=== PATIENT | male | born 1955 | race Caucasian/White ===

== ENCOUNTER 2016-05-28 10:18 | Emergency (ER) | payer SELFPAY ==
[2016-05-28 10:55] VITALS: BP 137/75
[2016-05-28] MEDS ORDERED: Ibuprofen TAB* 600 MG PO ONE (11:28)
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
--- NOTE | 2016-05-28 11:49 | RAD ---
Indication: Left knee injury. 4 views of the report left knee demonstrates no fracture. Joint spaces all well-preserved. There is some superficial infrapatellar swelling noted. Exostosis is present arising from the dorsal femur distally. This likely represents a benign osteochondroma. IMPRESSION: No fracture of the knee is noted. Soft tissue swelling superficial to the infrapatellar tendon is noted.
== END 2016-05-28 12:14 | disposition home or self-care (01) ==
LOC: UCCORT 10:18
DX: S83.412A Sprain of medial collateral ligament of left knee, initial encounter (principal); W00.0XXA Fall on same level due to ice and snow, initial encounter; Y93.9 Activity, unspecified; Y92.9 Unspecified place or not applicable; Y99.0 Civilian activity done for income or pay; M25.462 Effusion, left knee; I10 Essential (primary) hypertension; J44.9 Chronic obstructive pulmonary disease, unspecified; Z87.891 Personal history of nicotine dependence
CPT/HCPCS: 99214; A9270-GY; G0463

== ENCOUNTER 2017-10-24 06:59 | Emergency (ER) | payer BC ==
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
[2017-10-24] MEDS ORDERED: Dexamethasone IV* 4 MG/ML 1 ML (4 MG) IM ONE (08:26)
[2017-10-24] MEDS ORDERED: Ketorolac INJ* 60 MG/2 ML VIAL IM ONE (08:26)
[2017-10-24] MEDS ORDERED: Orphenadrine Citrate IV* 30 MG/ML 2 ML VIAL IM ONE (08:26)
[2017-10-24] MEDS ORDERED: HYDROcodone/ACETAMIN 5-325 MG* 1 TAB PO ONE (08:28)
--- NOTE | 2017-10-24 09:20 | RAD ---
INDICATION: Low back pain. COMPARISON: Comparison is made with a prior CT of the abdomen and pelvis from November 13, 2014. TECHNIQUE: 5 views of the lumbar spine were obtained including lateral, oblique, AP and a coned-down lateral view of the lumbar sacral junction. FINDINGS: The vertebra are in normal alignment. No fracture is seen. There is mild degenerative disc disease at the L2-L3, L3-L4 and L4-L5 levels and moderate to severe degenerative disc disease at the L5-S1 level. There appears be an aneurysm of the distal abdominal aorta measuring 3.6 cm on the film. IMPRESSION: 1. MODERATE TO SEVERE DEGENERATIVE DISC DISEASE AT THE L5-S1 LEVEL. 2. ANEURYSM OF THE DISTAL ABDOMINAL AORTA NOTED.
[2017-10-24 11:23] VITALS: BP 148/82
== END 2017-10-24 11:21 | disposition home or self-care (01) ==
LOC: ED 06:59
DX: M54.40 Lumbago with sciatica, unspecified side (principal); M51.9 Unspecified thoracic, thoracolumbar and lumbosacral intervertebral disc disorder; I71.4 Abdominal aortic aneurysm, without rupture; Z87.891 Personal history of nicotine dependence
CPT/HCPCS: 72110; 96372; 99282; J1100; J1885; J2360

== ENCOUNTER 2017-11-17 09:31 | Emergency (ER) | payer BC ==
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
[2017-11-17] MEDS ORDERED: ValACYclovir (*) 1 GM TAB PO ONE (10:35)
[2017-11-17] MEDS ORDERED: Acetaminophen TAB* 325 MG PO ONE (10:40)
[2017-11-17 11:38] LABS: ABS Basophils 0.1 10^3/ul (0-0.2); ABS Eosinophils 0.1 10^3/ul (0-0.6); ABS Lymphocytes 0.9 10^3/ul (1.0-4.8); ABS Monocytes 0.3 10^3/ul (0-0.8); ABS Neutrophils 3.8 10^3/ul (1.5-7.7); ABS Nucleated RBC 0 10^3/ul; Eosinophil % 1.6 % (0-6); Hematocrit 39 % (42-52); Hemoglobin 13.6 g/dl (14.0-18.0); Lymphocyte % 17.2 % (25-47); Mean Corpuscular HGB Conc 35 g/dl (31-36); Mean Corpuscular Hemoglobin 38 pg (27-31); Mean Corpuscular Volume 110 fL (80-94); Mean Platelet Volume 7.2 um3 (7.4-10.4); Nucleated Red Blood Cells % 0.1; Platelet Count 260 10^3/ul (150-450); Red Blood Count 3.55 10^6/ul (4.00-5.40); Red Cell Distribution Width 15 % (10.5-15); White Blood Count 5.1 10^3/ul (3.5-10.8)
[2017-11-17 11:47] LABS: INR 1.08 (0.77-1.02)
[2017-11-17 11:50] VITALS: BP 155/93
[2017-11-17 11:56] LABS: EGFR Non-African American 92.9 (>60)
[2017-11-17 12:26] LABS: Urine Appearance Clear; Urine Blood 1+ (Negative); Urine Color Yellow; Urine Ketones Negative (Negative); Urine Protein Negative (Negative); Urine Red Blood Cell 1+(3-5/hpf) (Absent); Urine Specific Gravity 1.019 (1.010-1.030); Urine Urobilinogen Negative (Negative); Urine White Blood Cell Trace(0-5/hpf) (Absent)
== END 2017-11-17 12:28 | disposition home or self-care (01) ==
LOC: ED 09:31
DX: B02.8 Zoster with other complications (principal); B02.39 Other herpes zoster eye disease; I10 Essential (primary) hypertension; I71.4 Abdominal aortic aneurysm, without rupture; D47.3 Essential (hemorrhagic) thrombocythemia; Z87.891 Personal history of nicotine dependence; Z79.899 Other long term (current) drug therapy; Z79.82 Long term (current) use of aspirin; Z82.3 Family history of stroke; Z82.49 Family history of ischemic heart disease and other diseases of the circulatory system
CPT/HCPCS: 36415; 80053; 81003; 81015; 83735; 85025; 85610; 86140; 87086; 99282; A9270-GY

== ENCOUNTER 2019-04-05 09:09 | Emergency (ER) | payer BC, OTHER ==
--- OUTSIDE RECORDS SUMMARY | 2019-04-05 09:38 | XMS REPORT | Summary of Care ---
:1955 Author Organization [facility] Address [address] [place] [address] Care Team Providers Name Role Phone Lico Araiza MD Primary Care Provider Reason for Visit Reason Comments Fall Loss of Consciousness Encounter Details Date Type Department Care Team Description 04/03/2019 Emergency EMERGENCY DEPARTMENT [facility] Sukhdev Cedillo MD Fall, initial encounter [address] [facility] (Primary Dx) [place] [address] [place] [address] [phone] Allergies No Known Allergiesdocumented as of this encounter (statuses as of 04/03/2019) Medications Medication Sig Dispensed Refills Start Date End Date Status Valsartan-hydroCHLOROthia TAKE ONE TABLET 0 01/17/2019 Active zide 160-25 MG Oral BY MOUTH EVERY Tablet (DIOVAN-HCT) DAY Tamsulosin HCl 0.4 MG TAKE TWO 0 01/17/2019 Active Oral Capsule (FLOMAX) CAPSULES BY MOUTH AT BEDTIME Spironolactone 25 MG Oral TAKE ONE TABLET 0 01/17/2019 Active Tablet (ALDACTONE) BY MOUTH EVERY DAY oxyCODONE HCl 10 MG Oral Take 10 mg by 0 04/01/2019 Active Tablet mouth Potassium Chloride Lola TAKE ONE TABLET 0 07/02/2017 Active ER 20 MEQ Oral Tablet BY MOUTH EVERY Extended Release DAY (K-DUR,KLOR-CON) Hydroxyurea 500 MG Oral TAKE THREE 0 12/16/2017 Active Capsule (HYDREA) CAPSULES BY MOUTH DAILY Aspirin 81 MG Oral Tablet Take 81 mg by 0 Active mouth Hydroxychloroquine 0 01/10/2019 Active Sulfate 200 MG Oral Tablet (PLAQUENIL) documented as of this encounter (statuses as of 04/03/2019) Active Problems Not on filedocumented as of this encounter (statuses as of 04/03/2019) Social History Tobacco Use Types Packs/Day Years Used Date Former Smoker Alcohol Use Drinks/Week oz/Week Comments Yes 3-5 beers daily Sex Assigned at Date Recorded Not on file Job Start Date Occupation Industry Not on file Not on file Not on file Travel History Travel Start Travel End No recent travel history available. documented as of this encounter Last Filed Vital Signs Vital Sign Reading Time Taken Comments Blood Pressure 166/92 04/03/2019 1:30 PM EST Pulse 85 04/03/2019 1:30 PM EST Temperature 36.8 04/03/2019 1:30 PM EST C (98.2 F) Respiratory Rate 18 04/03/2019 1:30 PM EST Oxygen Saturation 94% 04/03/2019 1:30 PM EST Inhaled Oxygen Concentration - - Weight 133.8 kg (295 lb) 04/03/2019 8:13 AM EST Height 182.9 cm (6') 04/03/2019 8:13 AM EST Body Mass Index 40.01 04/03/2019 8:13 AM EST documented in this encounter Discharge Instructions AttachmentsThe following attachments cannot be sent through Care Everywhere.Fall with Uncertain Cause (Albanian)documented in this encounter Plan of Treatment Not on filedocumented as of this encounter Procedures Procedure Name Priority Date/Time Associated Diagnosis Comments XR SHOULDER STAT 04/03/2019 12:48 PM Results for this COMPLETE 60487 EST procedure are in the results section. CT CERVICAL SPINE STAT 04/03/2019 9:10 AM Results [place] [address] HEAD WITHOUT STAT 04/03/2019 9:10 AM Results for this CONTRAST [id number] EST procedure are in the results section. XR SPINE LUMBAR 2-3 STAT 04/03/2019 9:03 AM Results for this VIEWS [id number] EST procedure are in the results section. XR PELVIS 1-2 VIEWS STAT 04/03/2019 9:03 AM Results for this [id number] EST procedure are in the results section. XR HUMERUS AP STAT 04/03/2019 9:03 AM Results for this LATERAL [id number] EST procedure are in the results section. documented in this encounter Results XR Shoulder Complete Right (04/03/2019 12:48 PM EST) Specimen Impressions Performed At FINDINGS/IMPRESSION: No acute fracture or dislocation is seen. [facility] Previously described bony density is noted associated with the greater tuberosity of the humerus appears well corticated. This may represent calcification at the insertion of the supraspinatus tendon, or old trauma. Acromioclavicular joint does not appear widened but demonstrates degenerative changes. No soft tissue swelling is appreciated. If pain persists, a followup examination in 7 to 10 days is recommended to evaluate for occult fracture. Narrative Performed At Shoulder complete. [facility] INDICATION: Fall, arm pain. TECHNIQUE: AP, oblique and scapular views of the right shoulder were obtained. COMPARISON: Humerus radiograph done earlier the same day. Procedure Note Interface, Received Via [facility] [facility] - 04/03/2019 1:06 PM EST Shoulder complete. INDICATION: Fall, arm pain. TECHNIQUE: AP, oblique and scapular views of the right shoulder were obtained. COMPARISON: Humerus radiograph done earlier the same day. FINDINGS/IMPRESSION: No acute fracture or dislocation is seen. Previously described bony density is noted associated with the greater tuberosity of the humerus appears well corticated. This may represent calcification at the insertion of the supraspinatus tendon, or old trauma. Acromioclavicular joint does not appear widened but demonstrates degenerative changes. No soft tissue swelling is appreciated. If pain persists, a followup examination in 7 to 10 days is recommended to evaluate for occult fracture. Performing Organization Address City/State/Zipcode Phone Number [facility] [address] [place] [address] CT Cervical Spine without Contrast (04/03/2019 9:10 AM EST) Specimen Impressions Performed At IMPRESSION: [facility] No acute fracture or traumatic listhesis. Narrative Performed At INDICATION: 63-year-old male fell with positive loss of consciousness. [facility] TECHNIQUE: Axial images of the cervical spine were obtained by multidetector row CT without administration of intravenous contrast. Coronal and sagittal reformatted images were then obtained using the axial source data. Automated dose lowering techniques and/or adjustment according to patient size were utilized for this exam. COMPARISON: None. FINDINGS: No acute fracture or traumatic listhesis. Vertebral body heights are normal. There is moderate loss of intervertebral disc height at C5/6 and C6/7. No significant spondylolisthesis. There are multilevel degenerative changes including anterior osteophytosis and facet arthrosis which are worst at C5/6 and C6/7. There are emphysematous changes and scarring within the visualized lung apices. The visualized paraspinal soft tissues are otherwise unremarkable. Procedure Note Interface, Received Via [facility] - 04/03/2019 2:02 PM EST INDICATION: 63-year-old male fell with positive loss of consciousness. TECHNIQUE: Axial images of the cervical spine were obtained by multidetector row CT without administration of intravenous contrast. Coronal and sagittal reformatted images were then obtained using the axial source data. Automated dose lowering techniques and/or adjustment according to patient size were utilized for this exam. COMPARISON: None. FINDINGS: No acute fracture or traumatic listhesis. Vertebral body heights are normal. There is moderate loss of intervertebral disc height at C5/6 and C6/7. No significant spondylolisthesis. There are multilevel degenerative changes including anterior osteophytosis and facet arthrosis which are worst at C5/6 and C6/7. There are emphysematous changes and scarring within the visualized lung apices. The visualized paraspinal soft tissues are otherwise unremarkable. IMPRESSION: No acute fracture or traumatic listhesis. Performing Organization Address City/State/Zipcode Phone Number [facility] [address] [place] [address] CT Head without Contrast (04/03/2019 9:10 AM EST) Specimen Impressions Performed At IMPRESSION: [facility] No acute intracranial pathology. Narrative Performed At INDICATION: 63-year-old male fell and struck head with positive loss of [facility] consciousness. TECHNIQUE: Contiguous axial CT images of the head from the base of the skull to the vertex without IV contrast. Automated dose lowering techniques and/or adjustment according to patient size were utilized for this exam. COMPARISON: None. FINDINGS: There is no evidence of intracranial hemorrhage or acute territorial infarction. No edema or mass effect. Ventricles, cisterns, and sulci are normal. No extra-axial collections. Paranasal sinuses are clear. Mastoid air cells are clear bilaterally. No depressed calvarial fracture. No evidence of scalp swelling. Surgical mesh is present along the floor of the right orbit. Procedure Note Interface, Received Via [facility] [facility] - 04/03/2019 2:10 PM EST INDICATION: 63-year-old male fell and struck head with positive loss of consciousness. TECHNIQUE: Contiguous axial CT images of the head from the base of the skull to the vertex without IV contrast. Automated dose lowering techniques and/or adjustment according to patient size were utilized for this exam. COMPARISON: None. FINDINGS: There is no evidence of intracranial hemorrhage or acute territorial infarction. No edema or mass effect. Ventricles, cisterns, and sulci are normal. No extra-axial collections. Paranasal sinuses are clear. Mastoid air cells are clear bilaterally. No depressed calvarial fracture. No evidence of scalp swelling. Surgical mesh is present along the floor of the right orbit. IMPRESSION: No acute intracranial pathology. Performing Organization Address [facility] Phone Number [facility] [address] [place] [address] XR Humerus AP Lateral Right (04/03/2019 9:03 AM EST) Specimen Impressions Performed At FINDINGS/IMPRESSION: [facility] A round bony density is identified superimposed over the greater tuberosity. This could represent a soft tissue calcification, however a bony fracture fragment cannot be excluded. No donor site is appreciated. Correlate for tenderness in this region. Dedicated shoulder radiograph is suggested. There is no other evidence for fracture, subluxation or dislocation. There is normal anatomic alignment of the bones. Mild degenerative changes are noted in the acromioclavicular joint and the elbow. There is normal bone mineralization. There are no radiopaque foreign bodies. Narrative Performed At INDICATION: Arm pain, status post fall. [facility] TECHNIQUE: AP and lateral views of the right humerus were obtained. COMPARISON: None available at the time of this dictation. Procedure Note Interface, Received Via [facility] [facility] - 04/03/2019 9:52 AM EST INDICATION: Arm pain, status post fall. TECHNIQUE: AP and lateral views of the right humerus were obtained. COMPARISON: None available at the time of this dictation. FINDINGS/IMPRESSION: A round bony density is identified superimposed over the greater tuberosity. This could represent a soft tissue calcification, however a bony fracture fragment cannot be excluded. No donor site is appreciated. Correlate for tenderness in this region. Dedicated shoulder radiograph is suggested. There is no other evidence for fracture, subluxation or dislocation. There is normal anatomic alignment of the bones. Mild degenerative changes are noted in the acromioclavicular joint and the elbow. There is normal bone mineralization. There are no radiopaque foreign bodies. Performing Organization Address [facility]/Zipcode Phone Number [facility] [address] [place] [address] XR Pelvis 1-2 Views (04/03/2019 9:03 AM EST) Specimen Impressions Performed At IMPRESSION: [facility] No evidence of acute fracture or subluxation. Narrative Performed At INDICATION: Fall, back pain. [facility] TECHNIQUE: AP and crosstable lateral views of the lumbar spine and 2 AP views of the pelvis were obtained. COMPARISON: None available at the time of this dictation. FINDINGS: Lumbar spine: For counting purposes, the lowest complete intervertebral disc space is designated L5-S1. No fractures or subluxations are identified. Vertebral body heights are well maintained. There is mild to moderate joint space narrowing at L5-S1. Alignment appears unremarkable. There are vascular calcifications. Visualized abdomen: There is a moderate stool burden. There are nondilated loops of bowel. Pelvis: There is no evidence of acute fracture or dislocation. The bones are anatomically aligned. There is mild degenerative changes at the SI joints and hip joints. No significant soft tissue abnormality is seen. Procedure Note Interface, Received Via [facility] - 04/03/2019 9:49 AM EST INDICATION: Fall, back pain. TECHNIQUE: AP and crosstable lateral views of the lumbar spine and 2 AP views of the pelvis were obtained. COMPARISON: None available at the time of this dictation. FINDINGS: Lumbar spine: For counting purposes, the lowest complete intervertebral disc space is designated L5-S1. No fractures or subluxations are identified. Vertebral body heights are well maintained. There is mild to moderate joint space narrowing at L5-S1. Alignment appears unremarkable. There are vascular calcifications. Visualized abdomen: There is a moderate stool burden. There are nondilated loops of bowel. Pelvis: There is no evidence of acute fracture or dislocation. The bones are anatomically aligned. There is mild degenerative changes at the SI joints and hip joints. No significant soft tissue abnormality is seen. IMPRESSION: No evidence of acute fracture or subluxation. Performing Organization Address City/State/Zipcode Phone Number [facility] [address] [place] [address] XR Spine Lumbar 2-3 Views (04/03/2019 9:03 AM EST) Specimen Impressions Performed At IMPRESSION: [facility] No evidence of acute fracture or subluxation. Narrative Performed At INDICATION: Fall, back pain. [facility] TECHNIQUE: AP and crosstable lateral views of the lumbar spine and 2 AP views of the pelvis were obtained. COMPARISON: None available at the time of this dictation. FINDINGS: Lumbar spine: For counting purposes, the lowest complete intervertebral disc space is designated L5-S1. No fractures or subluxations are identified. Vertebral body heights are well maintained. There is mild to moderate joint space narrowing at L5-S1. Alignment appears unremarkable. There are vascular calcifications. Visualized abdomen: There is a moderate stool burden. There are nondilated loops of bowel. Pelvis: There is no evidence of acute fracture or dislocation. The bones are anatomically aligned. There is mild degenerative changes at the SI joints and hip joints. No significant soft tissue abnormality is seen. Procedure Note Interface, Received Via [employer] [facility] - 04/03/2019 9:49 AM EST INDICATION: Fall, back pain. TECHNIQUE: AP and crosstable lateral views of the lumbar spine and 2 AP views of the pelvis were obtained. COMPARISON: None available at the time of this dictation. FINDINGS: Lumbar spine: For counting purposes, the lowest complete intervertebral disc space is designated L5-S1. No fractures or subluxations are identified. Vertebral body heights are well maintained. There is mild to moderate joint space narrowing at L5-S1. Alignment appears unremarkable. There are vascular calcifications. Visualized abdomen: There is a moderate stool burden. There are nondilated loops of bowel. Pelvis: There is no evidence of acute fracture or dislocation. The bones are anatomically aligned. There is mild degenerative changes at the SI joints and hip joints. No significant soft tissue abnormality is seen. IMPRESSION: No evidence of acute fracture or subluxation. Performing Organization Address City/State/Zipcode Phone Number [facility] [address] [place] [address] documented in this encounter Visit Diagnoses Diagnosis Fall, initial encounter - Primary documented in this encounter Administered Medications Medication Order MAR Action Action Date Dose Rate Site acetaminophen (TYLENOL) tablet Given 04/03/2019 11:02 AM EST 650 mg 650 mg 650 mg, Oral, Once, 04/03/19 at 1100, For 1 dose, Maximum daily dose of acetaminophen is 3,000 mg from all sources in 24 hours., documented in this encounter
--- OUTSIDE RECORDS SUMMARY | 2019-04-05 09:38 | XMS REPORT | Continuity of Care Document ---
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- Onset: 09/2013 Social History Type Date Description Comments Sex Unknown Tobacco Use Start: Unknown End: Former Cigarette Smoker 2 Unknown Packs Daily Smoking Status Reviewed: 02/21/19 Former Cigarette Smoker 2 Packs Daily ETOH Use Occasionally consumes alcohol Tobacco Use Start: Unknown End: Patient is a former smoker Unknown Recreational Drug Use Denies Drug Use Allergies, Adverse Reactions, Alerts Description No Known Drug Allergies Medications Active Medications SIG Qnty Indications Ordering Date Provider Hydroxychloroquine take one tab by 180tabs M06.00 Kurt 01/10/2019 Sulfate mouth daily for MD Juan Manuel 200mg Tablets one week, then increase to one tab twice daily thereafter Prednisone Take three tabs 45tabs M06.4 Kurt 12/22/2018 5mg Tablets by mouth daily MD Juan Manuel for one week, two tabs by mouth daily for one week, one tab by mouth daily for one week [place] Aspirin Ec Low Dose 1 by mouth every Unknown 03/05/[address] Cookrtbarry 1 by mouth every Unknown 03/05/2015 160mg Tablets day Diovan HCT 1 by mouth every 30tabs Unknown 80-12.5mg Tablets day Tamsulosin HCL 1 by mouth every 90caps Unknown 0.4mg Capsules day Klor-Con 10 1 by mouth every 30tabs Unknown 10Meq Tablets ER day Hydroxyurea Take Three Unknown 500mg Capsules Capsules By Mouth Every Day Spironolactone Lico Araiza, 25mg Tablets Oxycodone HCL Lico Araiza, 10mg Tablets Medications Administered in Office Medication SIG Qnty Indications Ordering Provider Date Triamcinolone (Kenalog) Kurt Zambrano MD 02/21/2019 Injection Immunizations Description No Information Available Vital Signs Date Vital Result Comment 02/21/2019 12:51pm Height 72 inches 6'0" Weight 290.00 lb Heart Rate 88 /min BP Systolic 114 mmHg BP Diastolic 73 mmHg Body Temperature 98.3 F Pain Level 9 O2 % BldC Oximetry 95 % BMI (Body Mass Index) 39.3 kg/m2 01/10/2019 1:24pm Height 72 inches 6'0" Weight 285.12 lb Heart Rate 70 /min BP Systolic 124 mmHg BP Diastolic 77 mmHg Body Temperature 97.7 F Pain Level 6 O2 % BldC Oximetry 95 % BMI (Body Mass Index) 38.7 kg/m2 Results Test Acquired Date Facility Test Result H/L Range Note Laboratory test 02/21/2019 [facility] Body Fluid <pending> finding [address] [address] [phone] Body Fluid Culture Bottles <pending> Corina Igg AB Reflex 01/10/2019 [facility] SS-A/Ro Antibody <0.2 U 1 [address] [place] [address] [phone] SS-B/La Antibody <0.2 U 2 Sm (Pablo) IgG Antibody <0.2 U 3 [employer] MANAGER Antibody, IgG <0.2 U 4 Scl-70 (Scleroderma) Antibody <0.2 U 5 Peace-1 Antibody <0.2 U 6 Vitamin B12 01/10/2019 [facility] Vitamin B12 237 pg/mL Normal 180-914 [address] [place] [address] [phone] Folic Acid (Folate) 16.92 ng/mL >3.99 CBC No Diff 12/22/2018 [facility] White Blood 7.8 10^3/uL Normal 3.5-10.8 [address] [place] [address] [phone] Red Blood Count 4.32 10^6/uL Normal 4.18-5.48 Hemoglobin 16.0 g/dL Normal 14.0-18.0 Hematocrit 47 % Normal 42-52 Mean Corpuscular Volume 109 fL High 80-94 8 Mean Corpuscular Hemoglobin 37 pg High 27-31 Mean Corpuscular HGB Conc 34 g/dL Normal 31-36 Red Cell Distribution Width 17 % High 10-15 Platelet Count 290 10^3/uL Normal 150-450 Mean Platelet Volume 8.0 fL Normal 7.4-10.4 Laboratory test 12/22/2018 [facility] C Reactive 7.07 mg/L Normal <8.01 finding [facility] [place] [address] [phone] Erythrocyte Sed Rate 3 mm/Hr Normal 0-19 Rheumatoid Factor 12 IU/mL Normal <15 Cyclic Citrullinated Pep Igg <15.6 U 9 Hla B27 12/22/2018 [facility] Hla B27 Negative [address] [place] [address] [phone] Hla B27 Interp See Comment 11 Nuclear AB 12/22/2018 [facility] Nuclear Ab Positive 1:160 Abnormal 12 (Idania) By Ifa [facility] (Idania) by Ifa, [place] [address] IgG [phone] Idania Titer: 1:160 Idania Pattern: Speckled 13 Comp Metabolic 12/22/2018 [facility] Sodium 139 mmol/L Normal 135-145 [place] [address] [phone] Potassium 4.0 mmol/L Normal 3.5-5.0 Chloride 102 mmol/L Normal 101-111 Co2 Carbon Dioxide 29 mmol/L Normal 22-32 Anion Gap 8 mmol/L Normal 2-11 Glucose 91 mg/dL Normal 70-100 Blood Urea Nitrogen 22 mg/dL Normal 6-24 Creatinine 0.89 mg/dL Normal 0.67-1.17 BUN/Creatinine Ratio 24.7 High 8-20 Calcium 9.5 mg/dL Normal 8.6-10.3 Total Protein 6.7 g/dL Normal 6.4-8.9 Albumin 4.4 g/dL Normal 3.2-5.2 Globulin 2.3 g/dL Normal 2-4 Albumin/Globulin Ratio 1.9 Normal 1-3 Total Bilirubin 0.70 mg/dL Normal 0.2-1.0 Alkaline Phosphatase 24 U/L Low 34-104 Alt 14 U/L Normal 7-52 Ast 12 U/L Low 13-39 Egfr Non- 86.3 >60 Egfr 104.5 >60 14 Laboratory test 12/22/2018 [facility] Ferritin 119.9 ng/mL Normal 24-[address] [place] [address] [phone] Iron & Iron 12/22/2018 [facility] Iron 69 g/dL Normal 50- 212 Binding Capacity [address] [place] [address] [phone] Unsaturated Iron Binding < 376 g/dL Total Iron Binding Capacity 391 g/dL Normal 250-450 Transferrin 279 mg/dL Normal 203-362 % Iron Saturation 18 % Normal 15-55 1 REFERENCE VALUE <1.0 (Negative) 2 REFERENCE VALUE <1.0 (Negative) 3 REFERENCE VALUE <1.0 (Negative) 4 REFERENCE VALUE <1.0 (Negative) 5 REFERENCE VALUE <1.0 (Negative) 6 REFERENCE VALUE <1.0 (Negative) Test Performed by: [facility] [place] [address] Fruit Dryer: Giancarlo Okeefe M.D. Ph.D.; CLIA# [id number] 7 Normal Range 180 to 914 Indeterminate Range 145 to 180 Deficient Range <145 8 Consistent with Previous Results Reported on 11/17/2017 9 REFERENCE VALUE <20.0 (Negative) Test Performed by: [facility] [place] [address] Fruit Dryer: Giancarlo Okeefe M.D. Ph.D.; CLIA# [id number] 10 REFERENCE VALUE Not Applicable 11 RESULT: HLA-B27 antigen was not detected. ADDITIONAL INFORMATION Method: Flow Cytometry Test Performed by: [facility] - [address] [address] Fruit Dryer: Giancarlo Okeefe M.D. Ph.D.; CLIA# [id number] 12 REFERENCE VALUE <1:80 (Negative) 13 Test Performed by: [facility] [place] [address] Fruit Dryer: Giancarlo Okeefe M.D. Ph.D.; CLIA# [id number] 14 Because ethnic data is not always readily available, this report includes an eGFR for both -Americans and non- Americans. The National Kidney Disease Education Program (NKDEP) does not endorse the use of the MDRD equation for patients that are not between the ages of 18 and 70, are , have extremes of body size, muscle mass, or nutritional status, or are non- or non-. According to the National Kidney Foundation, irrespective of diagnosis, the stage of the disease is based on the level of kidney function: Stage Description GFR(mL/min/1.73 m(2)) 1 Kidney damage with normal or decreased GFR 90 2 Kidney damage with mild decrease in GFR 60-89 3 Moderate decrease in GFR 30-59 4 Severe decrease in GFR 15-29 5 Kidney failure <15 (or dialysis) Procedures Date Code Description Status 02/21/2019 48179 Inject/Drain Joint/Bursa Major W/O US Completed 12/22/2018 54037 Ultrasound, Extremity, Nonvascular, Real-Time W/Image Completed Doc,Limited [employer] Devices Description No Information Available Encounters Type Date Location Provider Dx Diagnosis Office Visit 01/10/2019 Rheumatology Kurt Zambrano, R76.0 Raised antibody 2:00p [facility] Marquez MD titer Ccmob M06.00 Rheumatoid arthritis without rheumatoid factor, unsp site M17.9 Osteoarthritis of knee, unspecified Office Visit 12/22/2018 Rheumatology Kurt M06.4 Inflammatory 1:00p [facility] Zambrano MD polyarthropathy Ccmob D45 Polycythemia vera M25.562 Pain in left knee M54.5 Low back pain M79.645 Pain in left finger(s) Assessments Date Code Description Provider 02/21/2019 M17.0 Bilateral primary osteoarthritis of knee Kurt Zambrano MD 02/21/2019 M06.00 Rheumatoid arthritis without rheumatoid factor, Kurt Zambrano MD unspecified site 01/10/2019 R76.0 Raised antibody titer Kurt Zambrano MD 01/10/2019 M06.00 Rheumatoid arthritis without rheumatoid factor, Kurt Zambrano MD unspecified site 01/10/2019 M17.9 Osteoarthritis of knee, unspecified Kurt Zambrano MD 12/22/2018 M06.4 Inflammatory polyarthropathy Kurt Zambrano MD 12/22/2018 D45 Polycythemia vera (clinical) Kurt Zambrano MD 12/22/2018 M25.562 Knee pain Kurt Zambrano MD 12/22/2018 M54.5 Low back pain Kurt Zambrano MD 12/22/2018 M79.645 Pain in left finger(s) Kurt Zambrano MD Plan of Treatment Future Appointment(s):05/23/2019 11:30 am - Kurt Zambrano MD [facility]02/21/2019 - Kurt Zambrano, MDM17.0 Bilateral primary osteoarthritis of kneeFollow up:2-3 sfitelD85.00 Rheumatoid arthritis without rheumatoid factor, unspecified site Functional Status Description No Information Available Mental Status Description No Information Available Referrals Description No Information Available
[2019-04-05 09:44] VITALS: BP 136/63
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
== END 2019-04-05 10:08 | disposition home or self-care (01) ==
LOC: UCCORT 09:09
DX: S06.0X0A Concussion without loss of consciousness, initial encounter (principal); I10 Essential (primary) hypertension; J44.9 Chronic obstructive pulmonary disease, unspecified; Z87.891 Personal history of nicotine dependence; X58.XXXA Exposure to other specified factors, initial encounter; Y92.9 Unspecified place or not applicable
CPT/HCPCS: 99211; G0463

== ENCOUNTER 2019-09-29 11:11 | Observation (INO) ==
[~2019-09-29 11:11] MED LIST: Buffered Lidocaine 1% SYRIN 1 ml INTRADERM ONE; Famotidine IV 10 MG/ML 2 ml VIAL (20 mg) IV ONE; Lactated Ringers 1000 ml BAG 1,000 ML IV SCH
[2019-09-29] MEDS ORDERED: Buffered Lidocaine 1% SYRIN 1 ml INTRADERM ONE (11:49)
[2019-09-29] MEDS ORDERED: Famotidine IV 10 MG/ML 2 ml VIAL (20 mg) ONE (11:49)
[2019-09-29] MEDS ORDERED: ceFAZolin 2 GM PREMIX 2 GM/50 ML BAG ONE (11:49)
[2019-09-29] MEDS ORDERED: Phenylephrine IV 10 MG/ML 1 ml VIAL ONE (12:12)
[2019-09-29] MEDS ORDERED: fentaNYL 250 mcg/5 ml 50 MCG/ML 5 ml VIAL (250 MCG) ONE (12:18)
[2019-09-29] MEDS ORDERED: Midazolam 2 mg/2 ml VIAL 1 mg/ml 2 ml VIAL (2 mg) ONE (12:19)
[2019-09-29] MEDS ORDERED: Bupivacaine 0.5% SDV PF 30ML VIAL ONE (12:20)
[2019-09-29] MEDS ORDERED: ceFAZolin 1 GM ADVAN 1 GM ADDV.VIAL IVPB ONE (12:59)
[2019-09-29] MEDS ORDERED: ROPIVACAINE 5 MG/ML 30 ML BTL (0.5%) ONE ×2 (13:16→13:41)
[2019-09-29] MEDS ORDERED: Lidocaine 2% PF 5 ML VIAL ONE (13:41)
[2019-09-29] MEDS ORDERED: Dexamethasone IV 4 MG/ML VIAL 1 ml VIAL ONE (14:31)
[2019-09-29] MEDS ORDERED: HYDROmorphone 1 MG/1 ML SYRINGE ONE ×2 (14:32→15:06)
[2019-09-29] MEDS ORDERED: Rocuronium 50 mg VIAL 10 mg/ml 5 ml VIAL (50 mg) ONE (14:42)
[2019-09-29] MEDS ORDERED: EPHEDrine (Pressors) 50 MG/ML VIAL ONE (15:00)
[2019-09-29] MEDS ORDERED: Naloxone 0.4 mg VIAL 0.4 mg/ml 1 ml VIAL IV PRN (15:14)
[2019-09-29] MEDS ORDERED: Ondansetron 4 mg VIAL 2 MG/ML 2 ml VIAL IV PRN ×2 (15:14→16:38)
[2019-09-29] MEDS ORDERED: HYDROmorphone 1 MG/1 ML SYRINGE IV PRN (15:14)
[2019-09-29] MEDS ORDERED: Sugammadex 500 MG/5 ML 5 ml VIAL IV PUSH ONE (15:40)
[2019-09-29] MEDS ORDERED: Ondansetron 4 mg VIAL 2 MG/ML 2 ml VIAL ONE (15:40)
[2019-09-29] MEDS ORDERED: Morphine 2 MG/ML SYRINGE IV PRN (16:38)
[2019-09-29] MEDS ORDERED: diPHENhydraMINE IV 50 MG/ML 1 ml VIAL (BENADRYL) IV PRN (16:38)
[2019-09-29] MEDS ORDERED: Magnesium Hydroxide LIQ 30 ML UDC PO PRN (16:38)
[2019-09-29] MEDS ORDERED: Ondansetron ODT 4 mg TAB 4 MG TAB PO PRN (16:38)
[2019-09-29] MEDS ORDERED: diPHENhydraMINE 25 mg TAB PO PRN (16:38)
[2019-09-29] MEDS ORDERED: Lactulose 30 ml UDC PO PRN (16:38)
[2019-09-29] MEDS ORDERED: Lactated Ringers 1000 ml BAG 1,000 ML IV SCH (17:00)
[2019-09-29] MEDS ORDERED: fentaNYL 100 mcg/2 ml 50 MCG/ML VIAL ONE (17:08)
[2019-09-29] MEDS ORDERED: oxyCODONE/Acetamin 5/325 mg TAB ONE (17:08)
[2019-09-29] MEDS: fentaNYL 100 mcg/2 ml 50 MCG/ML VIAL IV PRN ×3 (17:10→18:15)
[2019-09-29] MEDS: oxyCODONE/Acetamin 5/325 mg TAB PO PRN ×2 (17:11→22:48)
[2019-09-29] MEDS ORDERED: hydrALAZINE 20 mg/ml 1 ML Vial IV ONE (17:56)
[2019-09-29] MEDS: Magnesium Hydroxide LIQ 30 ML UDC PO SCH (21:48)
[2019-09-29] MEDS: ceFAZolin 1 GM ADVAN 1 GM in NS 0.9% 50 ML 50 ML IVPB SCH (22:50)
[2019-09-30 05:13] LABS: Hematocrit 41 % (42-52); Hemoglobin 13.6 g/dL (14.0-18.0); Mean Platelet Volume 7.6 fL (7.4-10.4); Platelet Count 492 10^3/uL (150-450)
[2019-09-30 05:27] LABS: BUN/Creatinine Ratio 14.4 (8-20); Calcium 8.5 mg/dL (8.6-10.3); EGFR Non-African American 66.9 (>60); Potassium 4.4 mmol/L (3.5-5.0)
[2019-09-30] MEDS: ceFAZolin 1 GM ADVAN 1 GM in NS 0.9% 50 ML 50 ML IVPB SCH ×2 (06:00→14:48)
[2019-09-30] MEDS: oxyCODONE/Acetamin 5/325 mg TAB PO PRN ×2 (08:46→14:48)
[2019-09-30] MEDS: Magnesium Hydroxide LIQ 30 ML UDC PO SCH (08:46)
[2019-09-30] MEDS ORDERED: Vitamin THERAPEUTIC TAB PO SCH (09:00)
[2019-09-30] MEDS ORDERED: Aspirin EC 81 mg TAB.EC (enteric coated) PO SCH (09:00)
[2019-09-30] MEDS ORDERED: Valsartan/HCTZ 160/25(NF) TAB PO SCH (09:00)
[2019-09-30 12:08] VITALS: BP 105/57
== END 2019-09-30 15:45 | disposition home or self-care (01) ==
LOC: SSU 11:11 → OR 11:11 → EDSTATUS 15:30
PROVIDERS: ADMIT Orthopaedic Surgery Adult Reconstructive Orthopaedic Surgery; ATTEND Orthopaedic Surgery Adult Reconstructive Orthopaedic Surgery

== ENCOUNTER 2020-08-23 12:42 | Observation (INO) ==
[~2020-08-23 12:42] MED LIST changes: +Bupivacaine 0.25% SDV 30 ML ONE; +Bupivacaine 0.5% SDV PF 30ML VIAL ONE; -Famotidine IV 10 MG/ML 2 ml VIAL (20 mg) IV ONE; +Ketamine HCL 50 mg/ml 10 ml VIAL (500 MG) ONE; +Lidocaine 2% PF 10 ML AMP ONE; +Lidocaine 2% PF 5 ML VIAL ONE; +Propofol 10 MG/ML 20 ML BTL ONE
[2020-08-23] MEDS ORDERED: ceFAZolin 2 GM PREMIX 2 GM/50 ML BAG ONE (13:13)
[2020-08-23] MEDS ORDERED: fentaNYL 250 mcg/5 ml 50 MCG/ML 5 ml VIAL (250 MCG) ONE ×2 (13:56→15:43)
[2020-08-23] MEDS ORDERED: Midazolam 5 mg/5 ml VIAL 1 mg/ml 5 ml VIAL (5 mg) ONE (13:56)
[2020-08-23] MEDS ORDERED: Phenylephrine IV 10 MG/ML 1 ml VIAL ONE (14:57)
[2020-08-23] MEDS ORDERED: Phenylephrine 40 mcg/mL 10mL (400mcg) SYRINGE ONE (14:57)
[2020-08-23] MEDS ORDERED: Lidocaine 2% PF 10 ML AMP ONE (15:03)
[2020-08-23] MEDS ORDERED: ROPIVACAINE 5 MG/ML 30 ML BTL (0.5%) ONE (15:04)
[2020-08-23] MEDS ORDERED: Rocuronium 50 mg VIAL 10 mg/ml 5 ml VIAL (50 mg) ONE ×2 (15:14)
[2020-08-23] MEDS ORDERED: Ondansetron ODT 4 mg TAB 4 MG TAB PO PRN (15:28)
[2020-08-23] MEDS ORDERED: diPHENhydraMINE IV 50 MG/ML 1 ml VIAL (BENADRYL) IV PRN (15:28)
[2020-08-23] MEDS ORDERED: Morphine 2 MG/ML SYRINGE IV PRN (15:28)
[2020-08-23] MEDS ORDERED: diPHENhydraMINE 25 mg TAB PO PRN (15:28)
[2020-08-23] MEDS ORDERED: Magnesium Hydroxide LIQ 30 ML UDC PO PRN (15:28)
[2020-08-23] MEDS ORDERED: Ondansetron 4 mg VIAL 2 MG/ML 2 ml VIAL IV PRN (15:28)
[2020-08-23] MEDS ORDERED: Lactulose 30 ml UDC PO PRN (15:28)
[2020-08-23] MEDS ORDERED: Dexamethasone IV 4 MG/ML VIAL 1 ml VIAL ONE (15:51)
[2020-08-23] MEDS ORDERED: Ondansetron 4 mg VIAL 2 MG/ML 2 ml VIAL ONE (15:51)
[2020-08-23] MEDS ORDERED: Acetaminophen IV 1 GM/100ML 100 ML ONE (15:52)
[2020-08-23] MEDS ORDERED: Lactated Ringers 1000 ml BAG 1,000 ML IV SCH (16:00)
[2020-08-23] MEDS ORDERED: Sugammadex 500 MG/5 ML 5 ml VIAL IV PUSH ONE (16:59)
[2020-08-23] MEDS ORDERED: fentaNYL 100 mcg/2 ml 50 MCG/ML VIAL ONE ×2 (17:49→19:19)
[2020-08-23] MEDS: fentaNYL 100 mcg/2 ml 50 MCG/ML VIAL IV PRN ×3 (17:50→19:36)
[2020-08-23] MEDS ORDERED: DiMENhydriNATE IV 50 mg/ml 1 ml VIAL IV PUSH PRN (17:53)
[2020-08-23] MEDS ORDERED: Naloxone 0.4 mg VIAL 0.4 mg/ml 1 ml VIAL IV PRN (17:53)
[2020-08-23] MEDS ORDERED: HYDROmorphone 1 MG/1 ML SYRINGE ONE (18:18)
[2020-08-23] MEDS: HYDROmorphone 1 MG/1 ML SYRINGE IV PRN ×5 (18:20→19:26)
[2020-08-23] MEDS: Magnesium Hydroxide LIQ 30 ML UDC PO SCH (21:41)
[2020-08-24] MEDS: ceFAZolin 1 GM ADVAN 1 GM in NS 0.9% 50 ML 50 ML IVPB SCH ×3 (00:09→16:01)
[2020-08-24 06:34] LABS: Hematocrit 44 % (42-52); Hemoglobin 14.5 g/dL (14.0-18.0); Mean Platelet Volume 7.7 fL (7.4-10.4); Platelet Count 592 10^3/uL (150-450)
[2020-08-24 06:52] LABS: Calcium 8.4 mg/dL (8.6-10.3); EGFR African American 105.5 (>60); EGFR Non-African American 87.2 (>60); Potassium 3.9 mmol/L (3.5-5.0)
[2020-08-24] MEDS: Magnesium Hydroxide LIQ 30 ML UDC PO SCH (08:13)
[2020-08-24] MEDS ORDERED: Vitamin THERAPEUTIC TAB PO SCH (09:00)
[2020-08-24] MEDS ORDERED: Potassium Chlor 20 meq TAB.ER PO SCH (09:00)
[2020-08-24 16:20] VITALS: BP 132/78
== END 2020-08-24 14:55 | disposition home or self-care (01) ==
LOC: SSU 12:42 → OR 12:42
PROVIDERS: ADMIT Orthopaedic Surgery Adult Reconstructive Orthopaedic Surgery; ATTEND Orthopaedic Surgery Adult Reconstructive Orthopaedic Surgery

== ENCOUNTER 2021-04-10 09:23 | Observation (INO) ==
[2021-04-10] MEDS ORDERED: methylPREDNISolone 125 mg 2 ML VIAL IV ONE (10:23)
[2021-04-10] MEDS ORDERED: Albuterol HFA INHALER 8 gm MDI INH ONE (10:23)
[2021-04-10 11:05] LABS: Hematocrit 47 % (42-52); Hemoglobin 15.3 g/dL (14.0-18.0); Mean Corpuscular HGB Conc 32 g/dL (31-36); Mean Corpuscular Hemoglobin 32 pg (27-31); Mean Corpuscular Volume 98 fL (80-94); Mean Platelet Volume 7.9 fL (7.4-10.4); Platelet Count 537 10^3/uL (150-450); Red Blood Count 4.84 10^6 /uL (4.18-5.48); Red Cell Distribution Width 26 % (10-15); White Blood Count 20.5 10^3/uL (3.5-10.8)
[2021-04-10] MEDS ORDERED: Azithromycin 500 mg/250 ml NS 500 MG/250 ML BAG IVPB ONE (11:23)
[2021-04-10] MEDS ORDERED: cefTRIAXone 1 gm/50 mL NS BAG 1 GM/50 ML BAG IV ONE (11:23)
[2021-04-10 11:24] LABS: Troponin I 0.02 ng/mL (<0.03)
[2021-04-10 11:33] LABS: Albumin 4.6 g/dL (3.2-5.2); Albumin/Globulin Ratio 1.3 (1-3); C Reactive Protein 153.49 mg/L (<8.01); Calcium 9.7 mg/dL (8.6-10.3); Globulin 3.6 g/dL (2-4); Potassium 3.7 mmol/L (3.5-5.0); Total Bilirubin 1.1 mg/dL (0.2-1.0); Total Protein 8.2 g/dL (6.4-8.9); eGFR CKD-EPI 87.7 (>60)
[2021-04-10 11:37] LABS: ABS Eosinophils 0.4 10^3/ul (0-0.6); ABS Lymphocytes 0.8 10^3/ul (1.0-4.8); ABS Monocytes 0.1 10^3/ul (0-0.8); ABS Neutrophils 19.3 10^3/ul (1.5-7.7); Eosinophil % 1.9 %; Lymphocyte % 3.7 %; Nucleated Red Blood Cells % 0.1
[2021-04-10] MEDS ORDERED: Albuterol 2.5mg/3 ml (0.083%) NEB.SOLN INH PRN (13:41)
[2021-04-10] MEDS: SPIRIVA Respimat (tiotropium) 2.5 mcg/inh Inhaler INH SCH (14:49)
[2021-04-10] MEDS ORDERED: Furosemide 20 mg/2 ml IV VIAL IV ONE (14:51)
[2021-04-10] MEDS: Enoxaparin 40 MG/0.4 ML SYR SUBCUT SCH (15:53)
[2021-04-10] MEDS: CMCS: Pravastatin 20 mg TAB (NF) PO SCH (20:34)
[2021-04-11 06:03] LABS: Hematocrit 46 % (42-52); Hemoglobin 14.8 g/dL (14.0-18.0); Mean Corpuscular HGB Conc 32 g/dL (31-36); Mean Corpuscular Hemoglobin 32 pg (27-31); Mean Corpuscular Volume 98 fL (80-94); Mean Platelet Volume 8.3 fL (7.4-10.4); Platelet Count 540 10^3/uL (150-450); Red Blood Count 4.68 10^6 /uL (4.18-5.48); Red Cell Distribution Width 26 % (10-15)
[2021-04-11 06:20] LABS: Magnesium 2.3 mg/dL (1.9-2.7)
[2021-04-11 06:26] LABS: eGFR CKD-EPI 95.8 (>60)
[2021-04-11] MEDS: SPIRIVA Respimat (tiotropium) 2.5 mcg/inh Inhaler INH SCH (07:38)
[2021-04-11 08:15] LABS: ABS Basophils 0.1 10^3/ul (0-0.2); ABS Lymphocytes 0.7 10^3/ul (1.0-4.8); ABS Monocytes 0.1 10^3/ul (0-0.8); Eosinophil % 0.1 %; Lymphocyte % 2.9 %; Nucleated Red Blood Cells % 0.1
[2021-04-11] MEDS ORDERED: Valsartan/HCTZ 160/25(NF) TAB PO SCH (09:00)
[2021-04-11] MEDS: Aspirin EC 81 mg TAB.EC (enteric coated) PO SCH (10:51)
[2021-04-11] MEDS: cefTRIAXone 1 gm/50 mL NS BAG 1 GM/50 ML BAG IVPB SCH (15:31)
[2021-04-11] MEDS: Enoxaparin 40 MG/0.4 ML SYR SUBCUT SCH (15:38)
[2021-04-11] MEDS: CMCS: Pravastatin 20 mg TAB (NF) PO SCH (20:59)
[2021-04-12 06:11] LABS: Hematocrit 46 % (42-52); Mean Corpuscular HGB Conc 32 g/dL (31-36); Mean Corpuscular Hemoglobin 32 pg (27-31); Mean Corpuscular Volume 98 fL (80-94); Platelet Count 552 10^3/uL (150-450); Red Blood Count 4.76 10^6 /uL (4.18-5.48); Red Cell Distribution Width 26 % (10-15)
[2021-04-12 06:15] LABS: ABS Lymphocytes 0.8 10^3/ul (1.0-4.8); ABS Monocytes 0.1 10^3/ul (0-0.8); Eosinophil % 0.2 %; Lymphocyte % 3.8 %; Nucleated Red Blood Cells % 0.1
[2021-04-12 06:23] LABS: Calcium 8.7 mg/dL (8.6-10.3); Potassium 3.7 mmol/L (3.5-5.0)
[2021-04-12 06:29] LABS: C Reactive Protein 59.78 mg/L (<8.01); eGFR CKD-EPI 97.1 (>60)
[2021-04-12] MEDS: SPIRIVA Respimat (tiotropium) 2.5 mcg/inh Inhaler INH SCH (07:54)
[2021-04-12] MEDS ORDERED: Iohexol 350 (CONTRAST) 500 ML MDV IV ONE (08:26)
[2021-04-12] MEDS: Aspirin EC 81 mg TAB.EC (enteric coated) PO SCH (08:37)
[2021-04-12] MEDS: cefTRIAXone 1 gm/50 mL NS BAG 1 GM/50 ML BAG IVPB SCH (14:36)
[2021-04-12 15:14] VITALS: BP 146/89
[2021-04-12] MEDS: Enoxaparin 40 MG/0.4 ML SYR SUBCUT SCH (16:11)
== END 2021-04-12 18:40 | disposition home or self-care (01) ==
LOC: EDHOLD 09:23 → ED 09:23 → MED 14:40
PROVIDERS: ADMIT Internal Medicine; ATTEND Internal Medicine

== ENCOUNTER 2021-12-23 11:41 | Inpatient (IN) ==
[2021-12-23 12:34] LABS: Hematocrit 46 % (42-52); Hemoglobin 14.7 g/dL (14.0-18.0); Mean Corpuscular HGB Conc 32 g/dL (31-36); Mean Corpuscular Hemoglobin 27 pg (27-31); Mean Corpuscular Volume 85 fL (80-94); Mean Platelet Volume 8.1 fL (7.4-10.4); Platelet Count 169 10^3/uL (150-450); Red Blood Count 5.47 10^6 /uL (4.18-5.48); Red Cell Distribution Width 21 % (10-15); White Blood Count 26.5 10^3/uL (3.5-10.8)
[2021-12-23 12:47] LABS: Urine Appearance Cloudy; Urine Bilirubin Negative (Negative); Urine Blood Negative (Negative); Urine Color Yellow; Urine Glucose Negative (Negative); Urine Ketones Negative (Negative); Urine Nitrite Negative (Negative); Urine Protein Negative (Negative); Urine Specific Gravity 1.018 (1.002-1.030); Urine Urobilinogen Negative (Negative)
[2021-12-23 13:30] LABS: Albumin/Globulin Ratio 1.4 (1-3); C Reactive Protein 32.78 mg/L (<8.01); Calcium 9.1 mg/dL (8.6-10.3); Globulin 2.9 g/dL (2-4); Total Bilirubin 0.7 mg/dL (0.2-1.0); Total Protein 6.9 g/dL (6.4-8.9); eGFR CKD-EPI 95.2 (>60)
[2021-12-23 13:40] LABS: ABS Basophils 0.2 10^3/ul (0-0.2); ABS Eosinophils 0.6 10^3/ul (0-0.6); ABS Lymphocytes 1.2 10^3/ul (1.0-4.8); ABS Monocytes 0.3 10^3/ul (0-0.8); ABS Nucleated RBC 0.1 10^3/ul; Eosinophil % 2.4 %; Lymphocyte % 4.5 %; Nucleated Red Blood Cells % 0.2
[2021-12-23 13:43] LABS: Anisocytosis 2+
[2021-12-23] MEDS ORDERED: Albuterol HFA INHALER 8 gm MDI INH PRN (17:53)
[2021-12-23] MEDS ORDERED: HYDROmorphone 0.5 MG/0.5 ML SYRINGE IV ONE ×2 (19:31→21:06)
[2021-12-23] MEDS: Enoxaparin 40 MG/0.4 ML SYR SUBCUT SCH (21:14)
[2021-12-23] MEDS: Potassium Chlor 10 meq TAB PO SCH (21:15)
[2021-12-23] MEDS ORDERED: Senna TAB 8.6 mg TAB PO PRN (21:58)
[2021-12-23] MEDS ORDERED: Polyethylene Glycol 3350 17 GM PACKET PO PRN (21:58)
[2021-12-23] MEDS: Lidocaine PATCH 5% PATCH TRANSDERM SCH (23:00)
[2021-12-24] MEDS ORDERED: fentaNYL 100 mcg/2 ml 50 MCG/ML VIAL IV SLOW PU PRN (00:39)
[2021-12-24] MEDS ORDERED: fentaNYL 100 mcg/2 ml 50 MCG/ML VIAL IV SLOW PU ONE (00:41)
[2021-12-24 06:21] LABS: Hematocrit 47 % (42-52); Hemoglobin 14.9 g/dL (14.0-18.0); Mean Corpuscular HGB Conc 32 g/dL (31-36); Mean Corpuscular Hemoglobin 27 pg (27-31); Mean Corpuscular Volume 85 fL (80-94); Mean Platelet Volume 8.3 fL (7.4-10.4); Platelet Count 199 10^3/uL (150-450); Red Blood Count 5.56 10^6 /uL (4.18-5.48); Red Cell Distribution Width 21 % (10-15); White Blood Count 37.6 10^3/uL (3.5-10.8)
[2021-12-24 06:51] LABS: ABS Basophils 0.2 10^3/ul (0-0.2); ABS Eosinophils 0.2 10^3/ul (0-0.6); ABS Lymphocytes 1.3 10^3/ul (1.0-4.8); ABS Monocytes 0.5 10^3/ul (0-0.8); ABS Neutrophils 35.5 10^3/ul (1.5-7.7); ABS Nucleated RBC 0.1 10^3/ul; Anisocytosis 2+; Eosinophil % 0.6 %; Lymphocyte % 3.4 %; Nucleated Red Blood Cells % 0.1; Polychromasia 1+
[2021-12-24] MEDS: Lidocaine PATCH 5% PATCH TRANSDERM SCH (08:13)
[2021-12-24] MEDS: Potassium Chlor 10 meq TAB PO SCH ×2 (08:14→20:37)
[2021-12-24] MEDS ORDERED: Valsartan/HCTZ 160/25(NF) TAB PO SCH (09:00)
[2021-12-24] MEDS: Enoxaparin 40 MG/0.4 ML SYR SUBCUT SCH (20:39)
[2021-12-25] MEDS ORDERED: Lidocaine PATCH 5% PATCH TRANSDERM SCH (05:00)
[2021-12-25 06:18] LABS: Hematocrit 44 % (42-52); Hemoglobin 14.3 g/dL (14.0-18.0); Mean Corpuscular HGB Conc 32 g/dL (31-36); Mean Corpuscular Hemoglobin 27 pg (27-31); Mean Corpuscular Volume 85 fL (80-94); Platelet Count 166 10^3/uL (150-450); Red Cell Distribution Width 21 % (10-15); White Blood Count 33.7 10^3/uL (3.5-10.8)
[2021-12-25 06:41] LABS: Calcium 9.2 mg/dL (8.6-10.3); Potassium 4.2 mmol/L (3.5-5.0)
[2021-12-25 06:47] LABS: eGFR CKD-EPI 100.3 (>60)
[2021-12-25] MEDS: Potassium Chlor 10 meq TAB PO SCH (08:42)
[2021-12-25 09:13] LABS: Anisocytosis 2+; Polychromasia 1+
[2021-12-25 09:14] LABS: ABS Basophils 0.2 10^3/ul (0-0.2); ABS Lymphocytes 1.1 10^3/ul (1.0-4.8); ABS Monocytes 0.5 10^3/ul (0-0.8); ABS Nucleated RBC 0.1 10^3/ul; Eosinophil % 0.1 %; Lymphocyte % 3.3 %; Nucleated Red Blood Cells % 0.4
[2021-12-25 16:26] VITALS: BP 143/79
== END 2021-12-25 19:10 | disposition home or self-care (01) | DRG 552 ==
LOC: ED 11:41 → EDHOLD 11:41 → MED 21:33
PROVIDERS: ADMIT Hospitalist; ATTEND Hospitalist

== ENCOUNTER 2022-01-22 10:04 | Observation (INO) ==
[~2022-01-22 10:04] MED LIST changes: -Bupivacaine 0.25% SDV 30 ML ONE; -Bupivacaine 0.5% SDV PF 30ML VIAL ONE; +Chlorhexidine MOUTHWASH 0.12% 15 ML UDC TOPICAL ONE; +Famotidine IV 10 MG/ML 2 ml VIAL (20 mg) IV ONE; -Ketamine HCL 50 mg/ml 10 ml VIAL (500 MG) ONE; +Levalbuterol 0.63MG/3ML NEB UNIT OF USE INH ONE; -Lidocaine 2% PF 10 ML AMP ONE; -Lidocaine 2% PF 5 ML VIAL ONE; -Propofol 10 MG/ML 20 ML BTL ONE
[2022-01-22] MEDS ORDERED: Famotidine IV 10 MG/ML 2 ml VIAL (20 mg) ONE (10:30)
[2022-01-22] MEDS ORDERED: ceFAZolin 2 GM in NS PREMIX 2 GM/100 ML BAG IVPB ONE (10:30)
[2022-01-22] MEDS ORDERED: Levalbuterol 0.63MG/3ML NEB UNIT OF USE INH ONE (10:30)
[2022-01-22] MEDS ORDERED: Gelfoam Sponge SIZE 100 SPONGE ONE (10:42)
[2022-01-22] MEDS ORDERED: Thrombin 5,000 UNITS 1 APPLIC KIT - topical use - TOPICAL ONE (10:42)
[2022-01-22] MEDS ORDERED: ceFAZolin VIAL VIAL ONE (10:42)
[2022-01-22] MEDS ORDERED: Bupivacaine 0.5% W/EPI SDV 10 ML VIAL INJ ONE (10:42)
[2022-01-22] MEDS ORDERED: Ondansetron 4 mg VIAL 2 MG/ML 2 ml VIAL ONE (10:55)
[2022-01-22] MEDS ORDERED: Rocuronium 50 mg VIAL 10 mg/ml 5 ml VIAL (50 mg) ONE (10:55)
[2022-01-22] MEDS ORDERED: Propofol 0 MG/0 ML BTL ONE (10:55)
[2022-01-22] MEDS ORDERED: Midazolam 5 mg/5 ml VIAL 1 mg/ml 5 ml VIAL (5 mg) ONE (10:55)
[2022-01-22] MEDS ORDERED: Ketamine HCL 50 mg/ml 10 ml VIAL (500 MG) ONE (10:55)
[2022-01-22] MEDS ORDERED: Dexamethasone IV 4 MG/ML VIAL 1 ml VIAL ONE (10:55)
[2022-01-22] MEDS ORDERED: Phenylephrine 40 mcg/mL 10mL (400mcg) SYRINGE ONE (10:55)
[2022-01-22] MEDS ORDERED: fentaNYL 100 mcg/2 ml 50 MCG/ML VIAL ONE ×2 (10:55→16:33)
[2022-01-22] MEDS ORDERED: Propofol 10 MG/ML 20 ML BTL ONE ×3 (10:55→13:33)
[2022-01-22] MEDS ORDERED: Lidocaine 2% PF 5 ML VIAL ONE (10:55)
[2022-01-22] MEDS ORDERED: HYDROmorphone 0.5 MG/0.5 ML SYRINGE ONE ×2 (10:55→13:45)
[2022-01-22] MEDS ORDERED: ceFAZolin 1 GM in Dextrose 1 GM/50 ML BAG ONE (11:50)
[2022-01-22] MEDS ORDERED: Phenylephrine IV 10 MG/ML 1 ml VIAL ONE (12:30)
[2022-01-22] MEDS ORDERED: Levalbuterol 0.63MG/3ML NEB UNIT OF USE INH PRN (12:55)
[2022-01-22] MEDS ORDERED: Naloxone 0.4 mg VIAL 0.4 mg/ml 1 ml VIAL IV PRN (12:55)
[2022-01-22] MEDS ORDERED: fentaNYL 100 mcg/2 ml 50 MCG/ML VIAL IV PRN (12:55)
[2022-01-22] MEDS ORDERED: Sugammadex 500 MG/5 ML 5 ml VIAL IV PUSH ONE (13:50)
[2022-01-22] MEDS ORDERED: Ondansetron 4 mg VIAL 2 MG/ML 2 ml VIAL IV PRN (14:11)
[2022-01-22] MEDS ORDERED: Morphine 2 MG/ML SYRINGE IV PRN (14:14)
[2022-01-22] MEDS ORDERED: Senna TAB 8.6 mg TAB PO PRN (14:14)
[2022-01-22] MEDS ORDERED: Albuterol HFA INHALER 8 gm MDI INH PRN (14:15)
[2022-01-22] MEDS ORDERED: HYDROmorphone 1 MG/1 ML SYRINGE ONE (14:39)
[2022-01-22] MEDS: HYDROmorphone 1 MG/1 ML SYRINGE IV PRN ×2 (14:40→15:33)
[2022-01-22] MEDS ORDERED: Lactated Ringers 1000 ml BAG 1,000 ML IV SCH (15:00)
[2022-01-22] MEDS ORDERED: Potassium Chlor 20 meq TAB.ER PO SCH (21:00)
[2022-01-22] MEDS: Potassium Chlor 10 meq TAB PO SCH (23:21)
[2022-01-23] MEDS ORDERED: Heparin 5000 UNITS/ML 1 mL VIAL SUBCUT SCH (06:00)
[2022-01-23] MEDS: Potassium Chlor 10 meq TAB PO SCH ×2 (08:33→21:11)
[2022-01-23] MEDS ORDERED: Valsartan/HCTZ 160/25(NF) TAB PO SCH (09:00)
[2022-01-24] MEDS: Potassium Chlor 10 meq TAB PO SCH (08:32)
[2022-01-24 11:11] VITALS: BP 96/55
== END 2022-01-24 13:05 | disposition home or self-care (01) ==
LOC: SSU 10:04 → OR 10:04
PROVIDERS: ADMIT Neurological Surgery; ATTEND Neurological Surgery

== ENCOUNTER 2023-08-20 13:16 | Inpatient (IN) ==
[2023-08-20 14:29] LABS: Venous Bicarbonate HCO3 29.9 mmol/L (24-28)
[2023-08-20 14:31] LABS: Hematocrit 47.1 % (38-53); Hemoglobin 15.2 g/dL (13.2-16.3); Mean Corpuscular Hemoglobin 31.8 pg (27-33); Mean Corpuscular Hgb Conc 32.3 g/dL (31-36); Mean Corpuscular Volume 98.6 fL (80-97); Mean Platelet Volume 8.7 fL (7.5-11.2); Platelet Count 420 10^3/uL (150-450); Red Blood Count 4.78 10^6/uL (4.06-5.63); Red Cell Distribution Width 18.3 % (12-17); White Blood Count 18.3 10^3/uL (3.6-10.2)
[2023-08-20 14:40] LABS: INR 1.58 (0.83-1.13)
[2023-08-20 15:13] LABS: Albumin 4.1 g/dL (3.2-5.2); Albumin/Globulin Ratio 1.5 (1-3); Calcium 9.4 mg/dL (8.6-10.3); Creatinine, Serum 0.97 mg/dL (0.67-1.17); Globulin 2.7 g/dL (2-4); Potassium 4.3 mmol/L (3.5-5.0); Total Bilirubin 0.7 mg/dL (0.2-1.0); Total Protein 6.8 g/dL (6.4-8.9); eGFR CKD-EPI 85.6 (>60)
[2023-08-20 15:22] LABS: ABS Basophils 0.1 10^3/uL (0.0-0.1); ABS Eosinophils 0.3 10^3/uL (0.0-0.5); ABS Lymphocytes 1.5 10^3/uL (1.0-4.8); ABS Monocytes 0.5 10^3/uL (0.0-1.1); ABS Nucleated RBC 0.07 10^3/ul; Eosinophil % 1.6 %; Lymphocyte % 8.1 %; Nucleated Red Blood Cells % 0.4 %/100WBC (0.0-0.8)
[2023-08-20 16:31] LABS: High Sensitivity Troponin 1 Hr 16 pg/mL (<20)
[2023-08-20] MEDS: Albuterol/Ipratropium NEB.SOL (2.5/0.5 MG) 3 ML NEB.SOLN INH ONE ×2 (16:54→16:55)
[2023-08-20] MEDS: methylPREDNISolone SOD SUCC 125 mg 2 ML VIAL IV ONE (17:04)
[2023-08-20] MEDS: Iohexol 350 (CONTRAST) 500 ML MDV IV ONE (18:04)
[2023-08-20] MEDS: Azithromycin 500 mg/250 ml NS 500 MG/250 ML BAG IVPB ONE (19:05)
[2023-08-20] MEDS: cefTRIAXone 1 gm/50 mL D5W 1 GM/50 ML BAG IV ONE (19:05)
[2023-08-20] MEDS: Piperacillin/Tazobac 3.375 BAG 3.375 GM/100 ML BAG IV ONE (19:44)
[2023-08-20] MEDS: Morphine 4 MG/ML VIAL (1 ml) IV ONE (20:46)
[2023-08-20] MEDS: Enoxaparin 40 MG/0.4 ML SYR SUBCUT SCH (23:33)
[2023-08-21] MEDS: NF: BUDESONIDE/GLYCOPYR/FORMOTEROL MDI (NF) INH SCH (07:59)
[2023-08-21] MEDS: cefTRIAXone 1 gm/50 mL D5W 1 GM/50 ML BAG IV SCH (08:02)
[2023-08-21 09:43] LABS: Hematocrit 46.2 % (38-53); Hemoglobin 14.8 g/dL (13.2-16.3); Mean Corpuscular Hemoglobin 31.7 pg (27-33); Mean Corpuscular Hgb Conc 32.1 g/dL (31-36); Platelet Count 426 10^3/uL (150-450); Red Blood Count 4.67 10^6/uL (4.06-5.63); Red Cell Distribution Width 18.3 % (12-17); White Blood Count 24.7 10^3/uL (3.6-10.2)
[2023-08-21 10:20] LABS: Creatinine, Serum 0.93 mg/dL (0.67-1.17); Magnesium 2.2 mg/dL (1.9-2.7); Potassium 4.5 mmol/L (3.5-5.0)
[2023-08-21] MEDS: Azithromycin 250 MG in NS 0.9% 250 ml 250 ML IVPB SCH (10:39)
[2023-08-21 10:42] LABS: ABS Basophils 0.1 10^3/uL (0.0-0.1); ABS Eosinophils 0.1 10^3/uL (0.0-0.5); ABS Neutrophils 23.5 10^3/uL (1.5-7.6); ABS Nucleated RBC 0.09 10^3/ul; Eosinophil % 0.4 %; Lymphocyte % 4.1 %; Nucleated Red Blood Cells % 0.4 %/100WBC (0.0-0.8)
[2023-08-21] MEDS: COMBIVENT RESPIMAT INH SCH (15:33)
[2023-08-22] MEDS: Albuterol/Ipratropium RESP(NF) MDI (Combivent Respimat) INH PRN (00:10)
[2023-08-22] MEDS: Furosemide 20 mg/2 ml IV VIAL IV ONE (04:54)
[2023-08-22] MEDS: Albuterol HFA INHALER 8 gm MDI INH PRN (09:09)
[2023-08-22] MEDS: Albuterol/Ipratropium NEB.SOL (2.5/0.5 MG) 3 ML NEB.SOLN INH SCH (10:20)
[2023-08-22] MEDS: Furosemide 40 mg/4 ml IV VIAL IV SLOW PU SCH (13:01)
[2023-08-22 13:29] LABS: High Sensitivity Troponin 1 Hr 12 pg/mL (<20)
[2023-08-23 06:01] LABS: Hematocrit 45.9 % (38-53); Hemoglobin 14.6 g/dL (13.2-16.3); Mean Corpuscular Hemoglobin 31.6 pg (27-33); Mean Corpuscular Hgb Conc 31.8 g/dL (31-36); Mean Corpuscular Volume 99.6 fL (80-97); Mean Platelet Volume 8.9 fL (7.5-11.2); Platelet Count 416 10^3/uL (150-450); Red Blood Count 4.61 10^6/uL (4.06-5.63); Red Cell Distribution Width 18.3 % (12-17); White Blood Count 19.6 10^3/uL (3.6-10.2)
[2023-08-23 06:44] LABS: ABS Basophils 0.1 10^3/uL (0.0-0.1); ABS Eosinophils 0.2 10^3/uL (0.0-0.5); ABS Monocytes 0.3 10^3/uL (0.0-1.1); ABS Neutrophils 17.9 10^3/uL (1.5-7.6); ABS Nucleated RBC 0.04 10^3/ul; Anisocytosis 1+; Eosinophil % 0.9 %; Lymphocyte % 5.2 %; Nucleated Red Blood Cells % 0.2 %/100WBC (0.0-0.8); Polychromasia 1+
[2023-08-23 06:48] LABS: Anion Gap 7 mmol/L (2-16); Blood Urea Nitrogen 19 mg/dL (6-24); CO2 Carbon Dioxide 35 mmol/L (22-32); Calcium 8.6 mg/dL (8.6-10.3); Chloride 95 mmol/L (101-111); Creatinine, Serum 0.81 mg/dL (0.67-1.17); Glucose 117 mg/dL (70-100); Sodium 137 mmol/L (135-145); eGFR CKD-EPI 96.6 (>60)
[2023-08-23] MEDS: Albuterol/Ipratropium NEB.SOL (2.5/0.5 MG) 3 ML NEB.SOLN INH SCH (07:28)
[2023-08-24 06:20] LABS: Hematocrit 44.9 % (38-53); Hemoglobin 14.1 g/dL (13.2-16.3); Mean Corpuscular Hemoglobin 31.1 pg (27-33); Mean Corpuscular Hgb Conc 31.4 g/dL (31-36); Mean Platelet Volume 8.5 fL (7.5-11.2); Platelet Count 449 10^3/uL (150-450); Red Blood Count 4.53 10^6/uL (4.06-5.63); Red Cell Distribution Width 18.1 % (12-17); White Blood Count 18.8 10^3/uL (3.6-10.2)
[2023-08-24 06:37] LABS: Calcium 8.8 mg/dL (8.6-10.3); Creatinine, Serum 0.82 mg/dL (0.67-1.17); Potassium 4.3 mmol/L (3.5-5.0); eGFR CKD-EPI 96.3 (>60)
[2023-08-24 07:12] LABS: ABS Basophils 0.1 10^3/uL (0.0-0.1); ABS Eosinophils 0.2 10^3/uL (0.0-0.5); ABS Lymphocytes 1.2 10^3/uL (1.0-4.8); ABS Monocytes 0.4 10^3/uL (0.0-1.1); ABS Neutrophils 16.9 10^3/uL (1.5-7.6); ABS Nucleated RBC 0.05 10^3/ul; Anisocytosis 1+; Lymphocyte % 6.6 %; Nucleated Red Blood Cells % 0.2 %/100WBC (0.0-0.8); Polychromasia 1+
[2023-08-24] MEDS: CMC:FLUTICAS/UMECLI/VILANT 100-62.5-25 MDI (NF) INH SCH (13:23)
[2023-08-24] MEDS: Furosemide 40 mg/4 ml IV VIAL IV SLOW PU SCH (16:26)
[2023-08-24] MEDS: Albuterol/Ipratropium NEB.SOL (2.5/0.5 MG) 3 ML NEB.SOLN INH SCH (19:31)
[2023-08-24] MEDS: methylPREDNISolone SOD SUCC 40 mg/ml 1 ml VIAL IV SCH (21:48)
[2023-08-25] MEDS ORDERED: Albuterol/Ipratropium NEB.SOL (2.5/0.5 MG) 3 ML NEB.SOLN INH PRN (07:27)
[2023-08-25] MEDS: Furosemide 40 mg/4 ml IV VIAL IV SLOW PU SCH (09:23)
[2023-08-26 17:34] VITALS: BP 153/101
== END 2023-08-26 17:38 | disposition home or self-care (01) | DRG 871 ==
LOC: ED 13:16 → EDHOLD 19:50 → SUATTDRO 19:50 → MED 08-21 11:46
PROVIDERS: ADMIT Internal Medicine; ATTEND Internal Medicine

== ENCOUNTER 2023-09-22 17:37 | Observation (INO) ==
[2023-09-22 18:43] LABS: Hematocrit 44.6 % (38-53); Hemoglobin 14.7 g/dL (13.2-16.3); Mean Corpuscular Hemoglobin 32.9 pg (27-33); Mean Corpuscular Volume 99.7 fL (80-97); Mean Platelet Volume 8.7 fL (7.5-11.2); Platelet Count 440 10^3/uL (150-450); Red Blood Count 4.47 10^6/uL (4.06-5.63); Red Cell Distribution Width 19.1 % (12-17); White Blood Count 16.2 10^3/uL (3.6-10.2)
[2023-09-22 18:50] LABS: INR 1.31 (0.83-1.13)
[2023-09-22] MEDS: Albuterol/Ipratropium NEB.SOL (2.5/0.5 MG) 3 ML NEB.SOLN INH ONE (18:57)
[2023-09-22 19:12] LABS: ABS Basophils 0.1 10^3/uL (0.0-0.1); ABS Eosinophils 0.5 10^3/uL (0.0-0.5); ABS Lymphocytes 1.4 10^3/uL (1.0-4.8); ABS Monocytes 0.3 10^3/uL (0.0-1.1); ABS Neutrophils 13.9 10^3/uL (1.5-7.6); ABS Nucleated RBC 0.03 10^3/ul; Eosinophil % 3.4 %; Lymphocyte % 8.8 %; Nucleated Red Blood Cells % 0.2 %/100WBC (0.0-0.8)
[2023-09-22 19:18] LABS: ALT 23 U/L (7-52); Albumin 4.3 g/dL (3.2-5.2); Albumin/Globulin Ratio 1.5 (1-3); Alkaline Phosphatase 29 U/L (35-149); Blood Urea Nitrogen 22 mg/dL (6-24); CO2 Carbon Dioxide 32 mmol/L (22-32); Calcium 9.1 mg/dL (8.6-10.3); Chloride 97 mmol/L (101-111); Creatinine, Serum 1.06 mg/dL (0.67-1.17); Globulin 2.9 g/dL (2-4); Glucose 122 mg/dL (70-100); Sodium 137 mmol/L (135-145); Total Bilirubin 0.8 mg/dL (0.2-1.0); Total Protein 7.2 g/dL (6.4-8.9); eGFR CKD-EPI 76.9 (>60)
[2023-09-22 19:28] LABS: Anion Gap 8 mmol/L (2-16)
[2023-09-22 19:42] LABS: High Sens Troponin Baseline 15 pg/mL (<20)
[2023-09-22 20:42] LABS: Potassium Redraw 4.1 mmol/L (3.5-5.0)
[2023-09-22] MEDS ORDERED: Azithromycin 500 mg/250 ml NS 500 MG/250 ML BAG IVPB ONE (20:44)
[2023-09-22] MEDS ORDERED: Albuterol/Ipratropium NEB.SOL (2.5/0.5 MG) 3 ML NEB.SOLN INH PRN (22:01)
[2023-09-22] MEDS: Dexamethasone IV 4 MG/ML VIAL 1 ml VIAL IV SLOW PU ONE (22:15)
[2023-09-22] MEDS: Furosemide 40 mg/4 ml IV VIAL IV SLOW PU ONE (22:37)
[2023-09-22] MEDS: Cefepime 1 GM in Dextrose 1 GM/50 ML BAG IV ONE (22:38)
[2023-09-22] MEDS: Vancomycin 1,500 MG in NS 0.9% 250 ml 250 ML IVPB ONE (23:30)
[2023-09-23 03:36] LABS: C Reactive Protein 113.89 mg/L (<8.01)
[2023-09-23] MEDS: Enoxaparin 40 MG/0.4 ML SYR SUBCUT SCH (04:27)
[2023-09-23] MEDS: methylPREDNISolone SOD SUCC 40 mg/ml 1 ml VIAL IV SCH (06:19)
[2023-09-23 08:28] LABS: Hematocrit 46.3 % (38-53); Hemoglobin 14.9 g/dL (13.2-16.3); Mean Corpuscular Hemoglobin 31.8 pg (27-33); Mean Corpuscular Hgb Conc 32.1 g/dL (31-36); Mean Corpuscular Volume 98.9 fL (80-97); Mean Platelet Volume 8.5 fL (7.5-11.2); Platelet Count 435 10^3/uL (150-450); Red Blood Count 4.68 10^6/uL (4.06-5.63); Red Cell Distribution Width 18.9 % (12-17); White Blood Count 17.4 10^3/uL (3.6-10.2)
[2023-09-23 09:06] LABS: Calcium 9.1 mg/dL (8.6-10.3); Creatinine, Serum 0.97 mg/dL (0.67-1.17); Potassium 4.3 mmol/L (3.5-5.0); eGFR CKD-EPI 85.6 (>60)
[2023-09-23 09:21] LABS: ABS Lymphocytes 0.9 10^3/uL (1.0-4.8); ABS Monocytes 0.1 10^3/uL (0.0-1.1); ABS Neutrophils 16.3 10^3/uL (1.5-7.6); ABS Nucleated RBC 0.01 10^3/ul; Eosinophil % 0.3 %; Nucleated Red Blood Cells % 0.1 %/100WBC (0.0-0.8)
[2023-09-23] MEDS: Albuterol/Ipratropium NEB.SOL (2.5/0.5 MG) 3 ML NEB.SOLN INH SCH ×2 (13:16→18:36)
[2023-09-23] MEDS: Sulfur Hexaflouride MICROSPHR 25 MG VIAL IV ONE (14:55)
[2023-09-23] MEDS: Furosemide 40 mg/4 ml IV VIAL IV SLOW PU ONE (16:10)
[2023-09-23] MEDS ORDERED: Albuterol/Ipratropium NEB.SOL (2.5/0.5 MG) 3 ML NEB.SOLN INH PRN ×2 (16:23→18:30)
[2023-09-23] MEDS ORDERED: Albuterol HFA INHALER 8 gm MDI INH PRN (22:02)
[2023-09-23] MEDS: NF: Albuterol/Ipratropium RESP(NF) MDI (Combivent Respimat) INH SCH (23:08)
[2023-09-23] MEDS: NF: BUDESONIDE/GLYCOPYR/FORMOTEROL MDI (NF) INH SCH (23:09)
[2023-09-23] MEDS: Mometasone/Formoter 200/5 MDI INH SCH (23:32)
[2023-09-23] MEDS: SPIRIVA Respimat (tiotropium) 2.5 mcg/inh Inhaler INH SCH (23:33)
[2023-09-24 04:35] LABS: Calcium 9.1 mg/dL (8.6-10.3); Creatinine, Serum 0.96 mg/dL (0.67-1.17); Magnesium 2.4 mg/dL (1.9-2.7); Potassium 4.8 mmol/L (3.5-5.0); eGFR CKD-EPI 86.6 (>60)
[2023-09-24 04:46] LABS: Hematocrit 45.1 % (38-53); Hemoglobin 14.5 g/dL (13.2-16.3); Mean Corpuscular Hemoglobin 32.1 pg (27-33); Mean Corpuscular Hgb Conc 32.1 g/dL (31-36); Mean Corpuscular Volume 99.9 fL (80-97); Mean Platelet Volume 9.1 fL (7.5-11.2); Platelet Count 511 10^3/uL (150-450); Red Blood Count 4.52 10^6/uL (4.06-5.63); Red Cell Distribution Width 18.7 % (12-17); White Blood Count 22.2 10^3/uL (3.6-10.2)
[2023-09-24 05:39] LABS: ABS Lymphocytes 0.7 10^3/uL (1.0-4.8); ABS Monocytes 0.4 10^3/uL (0.0-1.1); ABS Neutrophils 21.1 10^3/uL (1.5-7.6); ABS Nucleated RBC 0.02 10^3/ul; Lymphocyte % 3.4 %; Nucleated Red Blood Cells % 0.1 %/100WBC (0.0-0.8)
[2023-09-24 05:55] LABS: High Sensitivity Troponin 1 Hr 9 pg/mL (<20)
[2023-09-24 07:55] LABS: C Reactive Protein 40.48 mg/L (<8.01)
[2023-09-24] MEDS ORDERED: Valsartan/HCTZ 160/25(NF) TAB PO SCH (09:00)
[2023-09-24] MEDS ORDERED: Acetylcysteine INH SOL (RT) 200 MG/ML 4 ML VIAL INH PRN (11:39)
[2023-09-24] MEDS: Albuterol HFA INHALER 8 gm MDI INH SCH (15:07)
[2023-09-25 06:50] LABS: Hemoglobin 14.6 g/dL (13.2-16.3); Mean Corpuscular Hemoglobin 31.8 pg (27-33); Mean Corpuscular Hgb Conc 31.7 g/dL (31-36); Mean Corpuscular Volume 100.6 fL (80-97); Mean Platelet Volume 9.1 fL (7.5-11.2); Platelet Count 481 10^3/uL (150-450); Red Blood Count 4.57 10^6/uL (4.06-5.63)
[2023-09-25 08:12] LABS: ABS Basophils 0.1 10^3/uL (0.0-0.1); ABS Eosinophils 0.1 10^3/uL (0.0-0.5); ABS Lymphocytes 1.5 10^3/uL (1.0-4.8); ABS Monocytes 0.3 10^3/uL (0.0-1.1); ABS Neutrophils 15.1 10^3/uL (1.5-7.6); ABS Nucleated RBC 0.07 10^3/ul; Eosinophil % 0.4 %; Lymphocyte % 8.6 %; Nucleated Red Blood Cells % 0.4 %/100WBC (0.0-0.8)
[2023-09-25 13:39] VITALS: BP 108/71
== END 2023-09-25 16:20 | disposition home or self-care (01) ==
LOC: EDHOLD 17:37 → ED 17:37 → SUATTDRO 22:06 → MED 09-23 14:09
PROVIDERS: ADMIT Internal Medicine; ATTEND Internal Medicine